=== PATIENT | female | born 1930 | race Caucasian/White ===

== ENCOUNTER 2016-10-20 04:35 | Inpatient (IN) | payer MEDICARE, BC ==
[2016-10-20] MEDS ORDERED: Potassium Chloride 40 MEQ in Premix Bag 1 BAG IV ONE ×2 (05:39→14:00)
[2016-10-20] MEDS ORDERED: cefTRIAXone 1 GM Vial IVPUSH ONE (05:39)
[2016-10-20] MEDS ORDERED: Sodium Chloride 0.9% 1,000 ML IV SCH (05:45)
--- NOTE | 2016-10-20 05:53 | EDM.PDOC ---
ED HPI GENERAL MEDICAL PROBLEM - General Chief Complaint: General Stated Complaint: vertigo, s/p fall Time Seen by Provider: 10/20/16 05:49 Source of Information: Reports: Patient, EMS - History of Present Illness INITIAL COMMENTS - FREE TEXT/NARRATIVE: Patient recieved in ER from ambulance S/P slid from chair and unable to get up. Significant other indicates unable to get her up from floor and therefore called 911. Onset: Today Onset Date: 10/20/16 Onset Time: 02:45 Duration: Hour(s): - Related Data Allergies Allergy/AdvReac Type Severity Reaction Status Date / Time amoxicillin trihydrate Allergy Cannot Verified 10/20/16 04:45 [From Augmentin] Remember ciprofloxacin [From Cipro] Allergy Cannot Verified 10/20/16 04:45 Remember ciprofloxacin HCl Allergy Cannot Verified 10/20/16 04:45 [From Cipro] Remember citalopram Allergy Cannot Verified 10/20/16 04:45 Remember potassium clavulanate Allergy Cannot Verified 10/20/16 04:45 [From Augmentin] Remember trifluridine [From Viroptic] Allergy Cannot Verified 10/20/16 04:45 Remember Home Meds: Home Meds Acetaminophen [Tylenol Extra Strength] 1,000 mg PO ASDIRECTED PRN 08/31/13 [ History] Budesonide [Pulmicort] 1 vial INH BID PRN 08/31/13 [History] Ipratropium/Albuterol Sulfate [Duoneb 0.5 MG-3 MG/3 ML] 3 ml INH QID PRN [History] Lisinopril [Prinivil] 20 mg PO DAILY 08/31/13 [History] Ca Carb & Gluc/Mag Ox & Gluc [Calcium Magnesium Caplet] 1 tab PO DAILY 10/20/16 [History] Carvedilol 12.5 mg PO BID 10/20/16 [History] Furosemide 40 mg PO BID 10/20/16 [History] Hydrochlorothiazide 25 mg PO DAILY 10/20/16 [History] Lutein/Minerals/Vit A,C & E [Ocuvite] 1 tab PO DAILY 10/20/16 [History] Past Medical History Cardiovascular History: Reports: Heart Failure, Hypertension Respiratory History: Reports: Asthma, COPD 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: , 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 (See Below) (C Section X3) Social & Family History - Family History Family Medical History: Noncontributory - Tobacco Use Smoking Status *Q: Never Smoker - Alcohol Use Alcohol Use History: No Alcohol Use in Last Twelve Months: No - Recreational Drug Use Recreational Drug Use: No - Living Situation & Occupation Living situation: Reports: with Significant Other Occupation: Retired ED ROS GENERAL - Review of Systems Review Of Systems: See Below Constitutional: Reports: Weakness HEENT: Reports: No Symptoms, Hearing Loss Respiratory: Reports: Other (COPD) Cardiovascular: Reports: No Symptoms Endocrine: Reports: No Symptoms GI/Abdominal: Reports: No Symptoms : Reports: No Symptoms Musculoskeletal: Reports: No Symptoms Skin: Reports: Pruritis, Rash Psychiatric: Reports: No Symptoms. Denies: Confusion Hematologic/Lymphatic: Reports: No Symptoms Immunologic: Reports: No Symptoms ED EXAM, GENERAL - Physical Exam Exam: See Below Exam Limited By: No Limitations General Appearance: Alert, WD/WN, No Apparent Distress Eye Exam: Bilateral Eye: EOMI, Normal Fundi, Normal Inspection, PERRL Ears: Normal External Exam, Normal Canal, Hearing Loss Ear Exam: Bilateral Ear: Auricle Normal, Canal Normal, TM normal Nose: Normal Inspection, Normal Mucosa, No Blood Throat/Mouth: Normal Inspection, Normal Lips, Normal Voice, No Airway Compromise Head: Atraumatic, Normocephalic Neck: Normal Inspection, Supple, Non-Tender, Full Range of Motion Respiratory/Chest: No Respiratory Distress, Lungs Clear, Normal Breath Sounds, No Accessory Muscle Use, Chest Non-Tender Cardiovascular: Normal Peripheral Pulses, Regular Rate, Rhythm, No Edema Peripheral Pulses: 2+: Radial (L), Radial (R), Dorsalis Pedis (L), Dorsalis Pedis (R) GI/Abdominal: Normal Bowel Sounds, Soft, Non-Tender (Female) Exam: Deferred Rectal (Female) Exam: Deferred Back Exam: Normal Inspection, Full Range of Motion Extremities: Normal Inspection, Pedal Edema Neurological: Alert, Oriented, CN II-XII Intact, Normal Cognition, No Motor/ Sensory Deficits EKG INTERPRETATION EKG Date: 10/20/16 Time: 05:30 Rhythm: NSR [place]: LAD-left axis deviation P-wave: present QRS: other (Abnormal QRS-T angle consider primary T wave abnormality) ST-T: normal QT: prolonged Course - Vital Signs Last Recorded V/S: Last Vital Signs Temp 36.9 C 10/20/16 04:41 Pulse 78 10/20/16 04:41 Resp 18 10/20/16 04:41 BP 126/50 L 10/20/16 04:41 Pulse Ox 94 L 10/20/16 04:41 - Orders/Labs/Meds Orders: Active Orders 24 hr Category Date Time Status Potassium Chloride [KCL 40 MEQ in Water 100 ML] 40 meq Med 10/20/16 05:39 Active Premix Bag 1 bag IV ONETIME Sodium Chloride 0.9% [Normal Saline] 1,000 ml Med 10/20/16 05:45 Active IV ASDIRECTED Medication Orders Potassium Chloride 40 meq/ (Premix) 100 mls @ 25 mls/hr IV ONETIME ONE Stop: 10/20/16 09:38 Last Admin: 10/20/16 06:08 Dose: 25 mls/hr Sodium Chloride (Normal Saline) 1,000 mls @ 100 mls/hr IV ASDIRECTED AGNI Stop: 10/24/16 05:41 Last Admin: 10/20/16 05:52 Dose: 100 mls/hr Labs: Laboratory Tests 10/20/16 10/20/16 10/20/16 Range/Units 04:52 04:52 05:15 WBC 6.7 (5.0-10.0) 10^3/uL RBC 3.45 L (4.00-5.50) 10^6/uL Hgb 9.4 L (12.0-16.0) g/dL Hct 28.9 L (37.0-47.0) % MCV 83.8 (82.0-94.0) fL MCH 27.2 (27.0-32.0) pg MCHC 32.5 L (33.0-38.0) g/dL RDW Coeff of Aura 14.8 (11.0-15.0) % Plt Count 223 (150-400) 10^3/uL Neut % (Auto) 64.7 (35-85) % Lymph % (Auto) 19.1 (10-55) % Pepin % (Auto) 11.9 (0-16) % Eos % (Auto) 3.9 (0-5) % Baso % (Auto) 0.4 (0-3) % Neut # (Auto) 4.33 (1.80-7.00) 10^3/uL Lymph # (Auto) 1.28 (1.00-4.80) 10^3/uL Pepin # (Auto) 0.80 (0.00-0.80) 10^3/uL Eos # (Auto) 0.26 (0.00-0.45) 10^3/uL Baso # (Auto) 0.03 10^3/uL Sodium 145 (136-145) mEq/L Potassium 2.8 L* D (3.5-5.0) mEq/L Chloride 103 (98-106) mEq/L Carbon Dioxide 18 L (21-32) mmol/L BUN 128 H* D (7-18) mg/dL Creatinine 10.1 H* D (0.6-1.0) mg/dL Est Cr Clr Drug Dosing 3.10 mL/min Estimated GFR (MDRD) 4 L (>=60) mL/min Glucose 91 (75-99) mg/dL Calcium 8.5 (8.4-10.1) mg/dL Total Bilirubin 0.4 (0.0-1.0) mg/dL AST 31 (15-37) U/L ALT 15 (12-78) U/L Alkaline Phosphatase 99 (46-116) U/L Creatine Kinase 341 H (21-215) U/L Troponin I 1.870 H* (0.00-0.06) ng/mL C-Reactive Protein 1.4 H (0.2-0.8) mg/dL Total Protein 7.6 (6.4-8.2) g/dL Albumin 3.2 L (3.4-5.0) g/dL Urine Color Yellow (YELLOW) Urine Appearance Slightly cloudy (CLEAR) Urine pH 5.0 (4.5-8.0) Ur Specific [place] 1.020 (1.003-1.020) Urine Protein 30 H (NEGATIVE) mg/dL Urine Glucose (UA) Negative (NEGATIVE) mg/dL Urine Ketones Negative (NEGATIVE) mg/dL Urine Occult Blood Negative (NEGATIVE) Urine Nitrite Negative (NEGATIVE) Urine Bilirubin Small H (NEGATIVE) Urine Urobilinogen 0.2 (0.2-1.0) EU/dL Ur Leukocyte Esterase Moderate H (NEGATIVE) Urine RBC 0-5 (0-5) /HPF Urine WBC 10-20 H (0-5) /HPF Ur Squamous Epith Cells Moderate H (NOT SEEN) /HPF Amorphous Sediment Few H (NOT SEEN) /HPF Urine Bacteria Few H (NOT SEEN) /HPF Hyaline Casts Occasional H (NOT SEEN) /LPF Urine Mucus Occasional H (NOT SEEN) /HPF Meds: Medications Generic Name Dose Route Start Last Admin Trade Name Freq PRN Reason Stop Dose Admin Potassium Chloride 40 meq/ 100 mls @ 25 mls/hr 10/20/16 05:39 10/20/16 06:08 Premix IV 10/20/16 09:38 25 mls/hr ONETIME ONE Administration Sodium Chloride 1,000 mls @ 100 mls/hr 10/20/16 05:45 10/20/16 05:52 Normal Saline IV 10/24/16 05:41 100 mls/hr ASDIRECTED ANGI Administration Discontinued Medications Generic Name Dose Route Start Last Admin Trade Name Freq PRN Reason Stop Dose Admin Ceftriaxone Sodium 1 gm 10/20/16 05:39 10/20/16 05:50 Rocephin IVPUSH 10/20/16 05:40 1 gm ONETIME ONE Administration Ceftriaxone Sodium Confirm 10/20/16 05:59 10/20/16 06:08 Rocephin Administered 10/20/16 06:00 Not Given Dose 1 gm .ROUTE .STK-MED ONE Sodium Chloride Confirm 10/20/16 05:59 10/20/16 06:08 Normal Saline Administered 10/20/16 06:00 Not Given Dose 1,000 mls @ as directed .ROUTE .STK-MED ONE Potassium Chloride Confirm 10/20/16 06:00 10/20/16 06:08 Kcl 40 Meq In Water 100 Ml Administered 10/20/16 06:01 Not Given Dose 100 mls @ as directed .ROUTE .STK-MED ONE Departure - Departure Time of Disposition: : Disposition: Admitted As Inpatient 65 Condition: fair Clinical Impression: OK, Myocardial infarction, Hypokalemia, UTI, Urinary tract infectious disease - Discharge Information Forms: ED Department Discharge MLP Sign Off - Signature Requirements MLP Sign Off: No - Problem List & Annotations (1) OK, Myocardial infarction SNOMED Code(s): 48789915 Code(s): I21.3 - ST ELEVATION (STEMI) MYOCARDIAL INFARCTION OF [facility] SITE Status: Acute (2) UTI, Urinary tract infectious disease SNOMED Code(s): 42386275 Code(s): N39.0 - URINARY TRACT INFECTION, SITE NOT SPECIFIED Status: Acute (3) Hypokalemia SNOMED Code(s): 19671223 Code(s): E87.6 - HYPOKALEMIA Status: Acute - My Orders Last 24 Hours: My Active Orders 10/20/16 05:39 Potassium Chloride [KCL 40 MEQ in Water 100 ML] 40 meq Premix Bag 1 bag IV ONETIME 10/20/16 05:45 Sodium Chloride 0.9% [Normal Saline] 1,000 ml IV ASDIRECTED - Assessment/Plan Admission H&P: Please use this note as an admission H&P Last 24 Hours: My Active Orders 10/20/16 05:39 Potassium Chloride [KCL 40 MEQ in Water 100 ML] 40 meq Premix Bag 1 bag IV ONETIME 10/20/16 05:45 Sodium Chloride 0.9% [Normal Saline] 1,000 ml IV ASDIRECTED Assessment:: Elevated Troponin-OK Weakness- UTI Hypokalemia Colstrip Loss Plan: Admit to acute care for acute OK-Dr. Llanes UTI Hypokalemia HTN
[2016-10-20] MEDS ORDERED: Sodium Chloride 0.9% 1,000 ML ONE (05:59)
[2016-10-20] MEDS ORDERED: cefTRIAXone 1 GM Vial ONE (05:59)
[2016-10-20] MEDS ORDERED: Potassium Chloride 100 ML ONE (06:00)
--- NOTE | 2016-10-20 06:43 | PCM.HP ---
H&P History of Present Illness - General Date of Service: 10/20/16 Source of Information: Patient, EMS, EMS Notes Reviewed History Limitations: Reports: No Limitations, Other (Hearing Loss) - History of Present Illness Initial Comments - Free Text/Narative: Admit from ER -See ER NOTE Onset of Symptoms: Reports: Today Symptom Onset Date: 10/20/16 Symptom Onset Time: 02:40 Duration of Symptoms: Reports: Hour(s): Improves with: Reports: None Worsens with: Reports: None Associated Symptoms: Reports: No Other Symptoms - Related Data Allergies/Adverse Reactions: Allergies Allergy/AdvReac Type Severity Reaction Status Date / Time amoxicillin trihydrate Allergy Cannot Verified 10/20/16 04:45 [From Augmentin] Remember ciprofloxacin [From Cipro] Allergy Cannot Verified 10/20/16 04:45 Remember ciprofloxacin HCl Allergy Cannot Verified 10/20/16 04:45 [From Cipro] Remember citalopram Allergy Cannot Verified 10/20/16 04:45 Remember potassium clavulanate Allergy Cannot Verified 10/20/16 04:45 [From Augmentin] Remember trifluridine [From Viroptic] Allergy Cannot Verified 10/20/16 04:45 Remember Home Medications: Home Meds Acetaminophen [Tylenol Extra Strength] 1,000 mg PO ASDIRECTED PRN 08/31/13 [ History] Budesonide [Pulmicort] 1 vial INH BID PRN 08/31/13 [History] Ipratropium/Albuterol Sulfate [Duoneb 0.5 MG-3 MG/3 ML] 3 ml INH QID PRN [History] Lisinopril [Prinivil] 20 mg PO DAILY 08/31/13 [History] Ca Carb & Gluc/Mag Ox & Gluc [Calcium Magnesium Caplet] 1 tab PO DAILY 10/20/16 [History] Carvedilol 12.5 mg PO BID 10/20/16 [History] Furosemide 40 mg PO BID 10/20/16 [History] Hydrochlorothiazide 25 mg PO DAILY 10/20/16 [History] Lutein/Minerals/Vit A,C & E [Ocuvite] 1 tab PO DAILY 10/20/16 [History] Past Medical History Cardiovascular History: Reports: Heart Failure, Hypertension Respiratory History: Reports: Asthma, COPD 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: , 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 (See Below) (C Section X3) Social & Family History - Family History Family Medical History: Noncontributory - Tobacco Use Smoking Status *Q: Never Smoker - Caffeine Use Caffeine Use: Reports: Coffee - Recreational Drug Use Recreational Drug Use: No - Living Situation & Occupation Living situation: Reports: with Significant Other Occupation: Retired H&P Review of Systems - Review of Systems: Review Of Systems: See Below General: Reports: Weakness HEENT: Reports: Other (Hearing Loss) Pulmonary: Reports: No Symptoms Cardiovascular: Reports: No Symptoms Gastrointestinal: Reports: No Symptoms Genitourinary: Reports: No Symptoms Musculoskeletal: Reports: No Symptoms Skin: Reports: Pruritis, Rash, Other (BLE trace edema, stasis ulcers with linear scratch rios-) Psychiatric: Reports: No Symptoms Neurological: Reports: Syncope, Weakness Hematologic/Lymphatic: Reports: No Symptoms Immunologic: Reports: No Symptoms Exam - Exam Exam: See Below - Vital Signs Vital Signs: Last Vital Signs Temp 36.9 C 10/20/16 04:41 Pulse 78 10/20/16 04:41 Resp 18 10/20/16 04:41 BP 126/50 L 10/20/16 04:41 Pulse Ox 94 L 10/20/16 04:41 Weight: 72.575 kg - Exam Quality Assessment: Skin Breakdown General: Alert, Oriented, Cooperative. No: Mild Distress HEENT: Conjunctiva Clear, EOMI, Mucosa Moist & [place], Nares Patent, Normal Nasal Septum, Posterior Pharynx Clear, TMs Clear, PERRLA Neck: Supple, Trachea Midline Lungs: Clear to Auscultation, Normal Respiratory Effort Cardiovascular: Regular Rate, Regular Rhythm, Normal S1, Normal S2 Abdomen: Normal Bowel Sounds, Soft (Female) Exam: Deferred Rectal (Female) Exam: Deferred Back Exam: Normal Inspection, Full Range of Motion Extremities: No: Calf Tenderness (Stasis Ulcerations-milena edema) Peripheral Pulses: 2+: Radial (L), Radial (R), Popliteal (L), Popliteal (R), Dorsalis Pedis (L), Dorsalis Pedis (R) Skin: Warm, Dry, Rash, Ecchymosis Neurological: Cranial Nerves Intact, Reflexes Equal Bilateral, Strength Equal Bilateral, Normal Speech, Normal Tone Neuro Extensive - Mental Status: Alert, Oriented x3, Normal Mood/Affect, Normal Cognition, Memory Intact Neuro Extensive - Motor, Sensory, Reflexes: CN II-XII Intact, Abnormal Gait ( assisted with ambulation) Psychiatric: Alert, Normal Affect, Normal Mood Physical Exam Comments:: Patient with strong odor of urine and appears disheveled. Dried feces noted on perineal region. Patient states lives with boyfriend no additional services are rendered eg home health etc. APS will be notified. - Patient Data Result Diagrams: 10/20/16 04:52 10/20/16 04:52 EKG INTERPRETATION EKG Date: 10/20/16 *Q Meaningful Use (ADM) - VTE *Q VTE Criteria *Q: VTE Mechanical Contraindications *Q: At Risk for Falls VTE Pharmacological Contraindications *Q: Renal Impairment - Stroke *Q Stroke Criteria *Q: - AMI *Q AMI Criteria *Q: - Problem List (1) PR, Myocardial infarction SNOMED Code(s): 33270706 ICD Code: I21.3 - ST ELEVATION (STEMI) MYOCARDIAL INFARCTION OF [facility] SITE Status: Acute Current Visit: Yes (2) UTI, Urinary tract infectious disease SNOMED Code(s): 28474433 ICD Code: N39.0 - URINARY TRACT INFECTION, SITE NOT SPECIFIED Status: Acute Current Visit: Yes (3) Hypokalemia SNOMED Code(s): 10265575 ICD Code: E87.6 - HYPOKALEMIA Status: Acute Current Visit: Yes Problem List Initiated/Reviewed/Updated: Yes Orders Last 24hrs: Medication Orders Potassium Chloride 40 meq/ (Premix) 100 mls @ 25 mls/hr IV ONETIME ONE Stop: 10/20/16 09:38 Last Admin: 10/20/16 06:08 Dose: 25 mls/hr Sodium Chloride (Normal Saline) 1,000 mls @ 125 mls/hr IV ASDIRECTED [facility] Stop: 10/24/16 05:41 Last Admin: 10/20/16 05:52 Dose: 125 mls/hr Assessment/Plan Comment:: Patient admission to acute care Acute PR with elevation Troponin - Hypokalemia Dehydration Renal Insufficiency UTI Weakness
[2016-10-20] MEDS ORDERED: Acetaminophen 500 MG Tab PO PRN ×2 (06:55→07:11)
[2016-10-20] MEDS ORDERED: Albuterol/Ipratropium 3.0-0.5 MG/3 ML Neb Soln INH PRN (06:55)
[2016-10-20] MEDS ORDERED: Budesonide 0.5 MG/2 ML Neb Susp INH PRN (06:55)
[2016-10-20] MEDS ORDERED: Docusate Sodium 100 MG Cap PO PRN (07:02)
[2016-10-20] MEDS ORDERED: Ondansetron 4 MG Tab.DIS PO PRN (07:02)
[2016-10-20] MEDS ORDERED: Acetaminophen 325 MG Tab PO PRN (07:02)
[2016-10-20] MEDS ORDERED: Calcium Carbonate/Magnesium Oxide/Zinc Oxide Tab PO SCH (08:00)
[2016-10-20] MEDS ORDERED: Beta-Carotene (Vitamin A) w/Vitamin C & E plus Minerals Tab PO SCH (08:00)
[2016-10-20] MEDS ORDERED: Lisinopril 20 MG Tab PO SCH (08:00)
[2016-10-20] MEDS ORDERED: GLUC PO SCH (08:00)
[2016-10-20] MEDS ORDERED: CA CARB PO SCH (08:00)
[2016-10-20] MEDS ORDERED: MAG OX PO SCH (08:00)
[2016-10-20] MEDS ORDERED: Carvedilol 12.5 MG Tab PO SCH (08:00)
[2016-10-20] MEDS ORDERED: [UNRECOGNIZED DRUG - OTHER] PO SCH (08:00)
--- NOTE | 2016-10-20 12:47 | PCM.PN ---
- General Info Date of Service: 10/20/16 Admission Dx/Problem (Free Text): Patient admitted this am with fall, hypokalemia, Dehydration, Renal Insufficiencey, UTI and elevated serum Troponin. Workup for acute GA negative with further Troponin study 6 hours post admission and negative pain or EKG changes. Since elevations of Troponin levels are seen in multiple chronic cardiac and non mechanical equipment test engineer closely for pain or EKG changes, I will discuss with patient option for transfer or/and repeat CMP renal studies and Troponin @ 1600 Functional Status: Reports: pain controlled, tolerating diet, ambulating Pain Score: 0 - Review of Systems General: Reports: No Symptoms HEENT: Reports: no symptoms Pulmonary: Reports: no symptoms Cardiovascular: Reports: No Symptoms. Denies: Chest Pain, Dyspnea on Exertion, Edema, Lightheadedness Gastrointestinal: Reports: No symptoms. Denies: Abdominal pain, Diarrhea Genitourinary: Reports: no symptoms, other (voiding without difficulty). Denies : dysuria, frequency Musculoskeletal: Reports: no symptoms Skin: Reports: dryness, pruritis, rash (BLE) Neurological: Reports: No Symptoms. Denies: Confusion, Dizziness, Syncope, Weakness Psychiatric: Reports: no symptoms - Patient Data Vitals - most recent: Last Vital Signs Temp 36.2 C 10/20/16 07:55 Pulse 70 10/20/16 08:19 Resp 18 10/20/16 07:55 BP 119/74 10/20/16 08:19 Pulse Ox 94 L 10/20/16 07:55 Weight - most recent: 72.575 kg I&O - last 24 hours: Intake & Output 10/19/16 10/20/16 10/20/16 22:59 06:59 14:59 Intake Total 200 Balance 200 Lab Results last 24 hrs: Laboratory Results - last 24 hr 10/20/16 Range/Units 10:55 Troponin I 1.159 H (0.00-0.06) ng/mL Med Orders - Current: Current Medications Acetaminophen (Tylenol) 650 mg PO Q4H PRN PRN Reason: Pain (Mild 1-3)/fever Acetaminophen (Tylenol Extra Strength) 1,000 mg PO Q4H PRN PRN Reason: Pain/Fever Albuterol/Ipratropium (Duoneb 3.0-0.5 Mg/3 Ml) 3 ml INH QID PRN PRN Reason: Dyspnea Budesonide (Pulmicort) 0.5 mg INH BID PRN PRN Reason: Dyspnea Calcium/Magnesium/Zinc (Calcium & Magnesium Plus Zinc) 1 tab PO DAILY [facility] Last Admin: 10/20/16 12:36 Dose: 1 tab Carvedilol (Coreg) 12.5 mg PO BID [facility] Last Admin: 10/20/16 08:19 Dose: 12.5 mg Docusate Sodium (Colace) 100 mg PO BID PRN PRN Reason: Constipation Potassium Chloride 40 meq/ (Premix) 100 mls @ 12.5 mls/hr IV ONETIME ONE Stop: 10/20/16 13:38 Last Admin: 10/20/16 06:08 Dose: 12.5 mls/hr Sodium Chloride (Normal Saline) 1,000 mls @ 125 mls/hr IV ASDIRECTED [facility] Stop: 10/24/16 05:41 Last Admin: 10/20/16 05:52 Dose: 125 mls/hr Lisinopril (Prinivil) 20 mg PO DAILY [facility] Last Admin: 10/20/16 08:19 Dose: 20 mg Multivitamins/Minerals (Prosight) 1 tab PO DAILY [facility] Last Admin: 10/20/16 08:19 Dose: 1 tab Ondansetron HCl (Zofran Odt) 4 mg PO Q4H PRN PRN Reason: nausea, able to take PO Discontinued Medications Acetaminophen (Tylenol Extra Strength) 1,000 mg PO ASDIRECTED PRN PRN Reason: Pain/Fever Ceftriaxone Sodium (Rocephin) 1 gm IVPUSH ONETIME ONE Stop: 10/20/16 05:40 Last Admin: 10/20/16 05:50 Dose: 1 gm Ceftriaxone Sodium (Rocephin) Confirm Administered Dose 1 gm .ROUTE .STK-MED ONE Stop: 10/20/16 06:00 Last Admin: 10/20/16 06:08 Dose: Not Given Sodium Chloride (Normal Saline) Confirm Administered Dose 1,000 mls @ as directed .ROUTE .STK-MED ONE Stop: 10/20/16 06:00 Last Admin: 10/20/16 06:08 Dose: Not Given Potassium Chloride (Kcl 40 Meq In Water 100 Ml) Confirm Administered Dose 100 mls @ as directed .ROUTE .STK-MED ONE Stop: 10/20/16 06:01 Last Admin: 10/20/16 06:08 Dose: Not Given - Exam Quality Assessment: No: supplemental oxygen, DVT prophylaxis, skin breakdown General: alert, oriented, cooperative HEENT: Pupils equal, Pupils reactive, EOMI, Mucous membr. moist/pink Neck: supple, trachea midline, no JVD Lungs: Clear to auscultation, Normal respiratory effort Cardiovascular: Regular Rate, Regular Rhythm Abdomen: bowel sounds present, soft, no tenderness, no distension (Female) Exam: Deferred Back Exam: Normal Inspection, Full Range of Motion Extremities: normal pulses, no calf tenderness (trace edema), edema Peripheral Pulses: 2+: Carotid (L), Carotid (R), Brachial (L), Brachial (R), Femoral (L), Femoral (R), Popliteal (L), Popliteal (R), Posterior Tibial (L), Posterior Tibial (R), Dorsalis Pedis (L), Dorsalis Pedis (R), 3+: Radial (L), Radial (R) Skin: warm, dry, rash Wound/Incisions: other (Hep Lick Patent) Neurological: no new focal deficit, normal speech, strength equal bilateral Psy/Mental Status: alert, normal affect, normal mood EKG INTERPRETATION Rhythm: NSR [place]: RAD-right axis deviation P-wave: present (Possible Inferior Infract age undetermined) - Problem List & Annotations (1) GA, Myocardial infarction SNOMED Code(s): 65593789 Code(s): I21.3 - ST ELEVATION (STEMI) MYOCARDIAL INFARCTION OF [facility] SITE Status: Acute Current Visit: Yes (2) UTI, Urinary tract infectious disease SNOMED Code(s): 85526893 Code(s): N39.0 - URINARY TRACT INFECTION, SITE NOT SPECIFIED Status: Acute Current Visit: Yes (3) Hypokalemia SNOMED Code(s): 15314713 Code(s): E87.6 - HYPOKALEMIA Status: Acute Current Visit: Yes - Problem List Review Problem List Initiated/Reviewed/Updated: Yes - My Orders Last 24 Hours: My Active Orders 10/20/16 05:15 CULTURE URINE [RM] Stat 10/20/16 06:41 Antiembolic Devices [RC] 1000,2200 MAURI Hose [Antiembolic Hose] [OM.PC] Routine 10/20/16 06:50 Resuscitation Status Routine 10/20/16 06:55 Albuterol/Ipratropium [DuoNeb 3.0-0.5 MG/3 ML] 3 ml INH QID PRN Budesonide [Pulmicort] 0.5 mg INH BID PRN 10/20/16 07:02 Patient Status [ADT] Routine Cardiac Monitoring [RC] 0800,2000 Vital Signs [RC] 0000,0400,0800,1200,1600,2000 Consult to Lathe Scalper Operator [CONS] Routine Chest 2V [CR] Routine Acetaminophen [Tylenol] 650 mg PO Q4H PRN Docusate Sodium [Colace] 100 mg PO BID PRN Ondansetron [Zofran ODT] 4 mg PO Q4H PRN 10/20/16 07:05 Up With Assistance [RC] .PRN 10/20/16 07:11 Acetaminophen [Tylenol Extra Strength] 1,000 mg PO Q4H PRN 10/20/16 08:00 Beta-Carotene(A) w/C & E/Min [Prosight] 1 tab PO DAILY Calcium/Magnesium/Zinc [Calcium & Magnesium plus Zinc] 1 tab PO DAILY Carvedilol [Coreg] 12.5 mg PO BID Lisinopril [Prinivil] 20 mg PO DAILY 10/20/16 16:00 CMP [COMPREHENSIVE METABOLIC PN,CMP] [CHEM] Routine TROPONIN I [CHEM] Routine 10/20/16 Breakfast 2 Gram Sodium Diet [DIET] 10/21/16 05:11 CBC WITH AUTO DIFF [HEME] AM COMPREHENSIVE METABOLIC PN,CMP [CHEM] AM POTASSIUM,K [CHEM] AM - Assessment Assessment:: Dehydration, Hypertension Renal Insufficiency Elevated Troponin now decreasing Hypokalemia Ground Level fall. - Plan Plan:: Patient admission to acute care Acute GA with elevation Troponin - Hypokalemia Dehydration Renal Insufficiency UTI Weakness 10/20/2016 1200: Patient admitted this am with fall, hypokalemia, Dehydration, Renal Insufficiency, UTI and elevated serum Troponin. Workup for acute GA negative with further Troponin study 6 hours post admission and negative pain or EKG changes. Since elevations of Troponin levels are seen in multiple chronic cardiac and non mechanical equipment test engineer closely for pain or EKG changes, I will discuss with patient option for transfer or/and repeat CMP renal studies and Troponin @ 1200 1400-Reassessment of patient with ECG Possible ANterior GA age undetermined. Troponin down from 1.8 to 1.3. Creatinine 9.2 down from 10 with K 2.8. Will transfer to [facility] per patient request for more definitive care Risks and benefits discussed with patient/family. Risks of Transfer include aircraft/vehicle crash, worsening of condition cardiac .Benefits of Transfer include specialized care including cardiac intervention.Risks of non transfer no specialized cardic care at local facility, risks continues with ,cardiac and worsening of condition. Benefits of non transfer; remaining in familiar environment and close to home. Patient and family verbalize understanding and agree to transfer. Transferred to [facility] after discussion with Dr. Jensen hospitalist. Patient agrees with plan.
[2016-10-20 13:13] VITALS: BP 115/54
--- NOTE | 2016-10-29 09:41 | PCM.DCSUM1 ---
Discharge Summary - Discharge Data Discharge Date: 10/20/16 ([facility] [address]) Discharge Disposition: DC/Tfer to Acute Hospital 02 Condition: Good - Discharge Diagnosis/Problem(s) (1) CT, Myocardial infarction SNOMED Code(s): 92981369 ICD Code: I21.3 - ST ELEVATION (STEMI) MYOCARDIAL INFARCTION OF [facility] SITE Status: Acute (2) UTI, Urinary tract infectious disease SNOMED Code(s): 96494680 ICD Code: N39.0 - URINARY TRACT INFECTION, SITE NOT SPECIFIED Status: Acute (3) Hypokalemia SNOMED Code(s): 71430137 ICD Code: E87.6 - HYPOKALEMIA Status: Acute - Patient Summary/Data Consults: Consultations 10/20/16 07:02 Consult to Risk Analyst [CONS] Routine - Discharge Plan Home Medications: Home Meds Acetaminophen [Tylenol Extra Strength] 1,000 mg PO ASDIRECTED PRN 08/31/13 [ History] Budesonide [Pulmicort] 1 vial INH BID PRN 08/31/13 [History] Ipratropium/Albuterol Sulfate [Duoneb 0.5 MG-3 MG/3 ML] 3 ml INH QID PRN [History] Lisinopril [Prinivil] 20 mg PO DAILY 08/31/13 [History] Ca Carb & Gluc/Mag Ox & Gluc [Calcium Magnesium Caplet] 1 tab PO DAILY 10/20/16 [History] Carvedilol 12.5 mg PO BID 10/20/16 [History] Furosemide 40 mg PO BID 10/20/16 [History] Hydrochlorothiazide 25 mg PO DAILY 10/20/16 [History] Lutein/Minerals/Vit A,C & E [Ocuvite] 1 tab PO DAILY 10/20/16 [History] Forms: ED Department Discharge Referrals: Giovanni Llanes MD [Primary Care Provider] - - General Info Date of Service: 10/20/16 Functional Status: Reports: pain controlled, tolerating diet, ambulating, urinating - Review of Systems General: Reports: No Symptoms HEENT: Reports: no symptoms Pulmonary: Reports: no symptoms Cardiovascular: Reports: No Symptoms Gastrointestinal: Reports: No symptoms Genitourinary: Reports: no symptoms Musculoskeletal: Reports: no symptoms Skin: Reports: no symptoms Neurological: Reports: No Symptoms Psychiatric: Reports: no symptoms, confusion (Hearing loss-difficult to communicate with patient.), other - Patient Data Vitals - Most Recent: Last Vital Signs Temp 36.2 C 10/20/16 12:00 Pulse 67 10/20/16 12:00 Resp 16 10/20/16 12:00 BP 115/54 L 10/20/16 12:00 Pulse Ox 97 10/20/16 12:00 Weight - Most Recent: 72.575 kg Med Orders - Current: Current Medications Discontinued Medications Acetaminophen (Tylenol Extra Strength) 1,000 mg PO ASDIRECTED PRN PRN Reason: Pain/Fever Acetaminophen (Tylenol) 650 mg PO Q4H PRN PRN Reason: Pain (Mild 1-3)/fever Acetaminophen (Tylenol Extra Strength) 1,000 mg PO Q4H PRN PRN Reason: Pain/Fever Albuterol/Ipratropium (Duoneb 3.0-0.5 Mg/3 Ml) 3 ml INH QID PRN PRN Reason: Dyspnea Budesonide (Pulmicort) 0.5 mg INH BID PRN PRN Reason: Dyspnea Calcium/Magnesium/Zinc (Calcium & Magnesium Plus Zinc) 1 tab PO DAILY [facility] Last Admin: 10/20/16 12:36 Dose: 1 tab Carvedilol (Coreg) 12.5 mg PO BID [facility] Last Admin: 10/20/16 08:19 Dose: 12.5 mg Ceftriaxone Sodium (Rocephin) 1 gm IVPUSH ONETIME ONE Stop: 10/20/16 05:40 Last Admin: 10/20/16 05:50 Dose: 1 gm Ceftriaxone Sodium (Rocephin) Confirm Administered Dose 1 gm .ROUTE .STK-MED ONE Stop: 10/20/16 06:00 Last Admin: 10/20/16 06:08 Dose: Not Given Docusate Sodium (Colace) 100 mg PO BID PRN PRN Reason: Constipation Potassium Chloride 40 meq/ (Premix) 100 mls @ 12.5 mls/hr IV ONETIME ONE Stop: 10/20/16 13:38 Last Admin: 10/20/16 06:08 Dose: 12.5 mls/hr Sodium Chloride (Normal Saline) 1,000 mls @ 125 mls/hr IV ASDIRECTED [facility] Stop: 10/24/16 05:41 Last Admin: 10/20/16 05:52 Dose: 125 mls/hr Sodium Chloride (Normal Saline) Confirm Administered Dose 1,000 mls @ as directed .ROUTE .STK-MED ONE Stop: 10/20/16 06:00 Last Admin: 10/20/16 06:08 Dose: Not Given Potassium Chloride (Kcl 40 Meq In Water 100 Ml) Confirm Administered Dose 100 mls @ as directed .ROUTE .STK-MED ONE Stop: 10/20/16 06:01 Last Admin: 10/20/16 06:08 Dose: Not Given Potassium Chloride 40 meq/ (Premix) 100 mls @ 25 mls/hr IV ONETIME ONE Stop: 10/20/16 17:59 Last Admin: 10/20/16 14:53 Dose: 25 mls/hr Lisinopril (Prinivil) 20 mg PO DAILY [facility] Last Admin: 10/20/16 08:19 Dose: 20 mg Multivitamins/Minerals (Prosight) 1 tab PO DAILY [facility] Last Admin: 10/20/16 08:19 Dose: 1 tab Ondansetron HCl (Zofran Odt) 4 mg PO Q4H PRN PRN Reason: nausea, able to take PO - Exam General: Reports: alert, oriented, cooperative, no acute distress HEENT: Reports: Pupils equal, Pupils reactive, EOMI, Mucous membr. moist/pink. Denies: Scleral icterus Neck: Reports: supple, trachea midline Lungs: Reports: Clear to auscultation, Normal respiratory effort Cardiovascular: Reports: Regular Rate, Regular Rhythm Abdomen: Reports: soft (Female) Exam: Deferred Rectal (Female) Exam: Deferred Back Exam: Reports: Normal Inspection Extremities: Reports: edema (1+ non pitting) Skin: Reports: warm, dry, intact, other (Parched lips) Neurological: Reports: normal gait, other (with assistance-bath and hygiene completed) Psy/Mental Status: Reports: alert, normal affect, normal mood *Q Meaningful Use (DIS) - VTE *Q VTE Criteria *Q: VTE Mechanical Contraindications *Q: At Risk for Falls VTE Pharmacological Contraindications *Q: Renal Impairment - Stroke *Q Stroke Criteria *Q: - AMI *Q AMI Criteria *Q:
== END 2016-10-20 15:45 | DRG 281 ==
LOC: CC.ED 04:35 → CC.MS 06:33
PROVIDERS: ADMIT Nurse Practitioner; ATTEND Family Medicine
DX: I21.3 ST elevation (STEMI) myocardial infarction of unspecified site (principal); N39.0 Urinary tract infection, site not specified; E87.6 Hypokalemia; I11.0 Hypertensive heart disease with heart failure; I50.9 Heart failure, unspecified; J44.9 Chronic obstructive pulmonary disease, unspecified; R74.8 Abnormal levels of other serum enzymes; W07.XXXA Fall from chair, initial encounter; Y92.009 Unspecified place in unspecified non-institutional (private) residence as the place of occurrence of the external cause; R53.1 Weakness; R42 Dizziness and giddiness; H91.90 Unspecified hearing loss, unspecified ear; N28.9 Disorder of kidney and ureter, unspecified; Z88.1 Allergy status to other antibiotic agents; Z88.8 Allergy status to other drugs, medicaments and biological substances
CPT/HCPCS: 36415; 80053; 81001; 82550; 84484; 85025; 86140; 87086; 96365; 96375; 99285; J0696; J3480; J7030; 71020; 83735; 87088; 87186; 93005; 93010; 96361; 96374; A9270-GY